=== PATIENT | male | born 1965 | race Caucasian/White ===

== ENCOUNTER 2020-03-16 09:01 | Day surgery (SDC) | payer OTHER ==
[~2020-03-16] VITALS: Ht 172.7 cm; Wt 107.3 kg
[~2020-03-16 09:01] MED LIST: PRILOSEC 20MG20 MG PO; ZOLOFT20 MG/ML
[2020-03-16] MEDS ORDERED: PROZAC 20MG20 MG PO (09:40)
[2020-03-16] MEDS ORDERED: VITAMIND3 5000 PO (09:41)
[2020-03-16] MEDS ORDERED: DIOVAN320 MG PO (09:42)
[2020-03-16] MEDS ORDERED: CRESTOR 10MG10 MG PO (09:43)
[2020-03-16] MEDS ORDERED: DEPAKOTE500 MG PO (09:43)
[2020-03-16] MEDS ORDERED: MINIPRESS2 MG PO (09:44)
[2020-03-16] MEDS ORDERED: LIPITOR20 MG PO (09:44)
[2020-03-16] MEDS ORDERED: GLUCOPHAGE1000 MG PO (09:45)
[2020-03-16] MEDS ORDERED: SINGULAIR 110 MG/TAB PO (09:45)
[2020-03-16 09:46] VITALS: BP 138/78; PULSE 63; TEMP 97
[2020-03-16 11:00] VITALS: BP 105/60; PULSE 61; TEMP 96.9
[2020-03-16 11:15] VITALS: BP 127/77; PULSE 61
--- NOTE | 2020-03-16 11:15 | NUR ---
PT RETURNED FROM ENDO PROCEDURE ROOM INTO BAY#1. PT ALERT, ORIENTATED, SLEEPY. LUNGS CLEAR, HRR AND BRADYCARDIC. BOWEL SOUNDS ACTIVE. PT REQUESTS DOMINIC CRACKERS AND DIET SPRITE. WILL CONT TO SANCHEZ.
--- NOTE | 2020-03-16 11:21 | NUR ---
PT TOLERATING SPRITE AND CRACKERS. PT DENIES PAIN OR NAUSEA AT THIS TIME. WILL CONT TO MONITOR.
[2020-03-16 11:30] VITALS: BP 116/71; PULSE 56
--- NOTE | 2020-03-16 12:00 | NUR ---
PT ALERT AND ORIENTATED, DENIES PAIN OR NAUSEA AT THIS TIME. IV DC'D, PT TOLERATED WELL, VSS, AFEBRILE. DISMISSAL INSTRUCTIONS GIVEN, QUESTIONS ANSWERED REGARDING H-PYLORI TEST. DENIED FURTHER QUESTIONS.
--- NOTE | 2020-03-16 12:04 | NUR ---
PT DISCHARGED PER WC TO FAMILY VEHICLE. DRIVING.
== END 2020-03-16 11:50 | disposition home or self-care (01) ==
LOC: SDCO 09:01
DX: K57.30 Diverticulosis of large intestine without perforation or abscess without bleeding (principal); K92.1 Melena; K64.1 Second degree hemorrhoids; R19.7 Diarrhea, unspecified; K21.9 Gastro-esophageal reflux disease without esophagitis; E78.5 Hyperlipidemia, unspecified; F43.10 Post-traumatic stress disorder, unspecified; F41.9 Anxiety disorder, unspecified; M19.90 Unspecified osteoarthritis, unspecified site; E11.9 Type 2 diabetes mellitus without complications; F17.210 Nicotine dependence, cigarettes, uncomplicated; G47.33 Obstructive sleep apnea (adult) (pediatric); I10 Essential (primary) hypertension; G43.909 Migraine, unspecified, not intractable, without status migrainosus; F32.9 Major depressive disorder, single episode, unspecified; Z79.84 Long term (current) use of oral hypoglycemic drugs
CPT/HCPCS: J2704; J7120

== ENCOUNTER 2020-06-09 21:22 | Emergency (ER) | payer OTHER ==
[~2020-06-09] VITALS: Ht 172.7 cm; Wt 100.0 kg
[~2020-06-09 21:22] MED LIST changes: +CRESTOR 10MG10 MG PO; +DEPAKOTE500 MG PO; +DIOVAN320 MG PO; +GLUCOPHAGE1000 MG PO; +LIPITOR20 MG PO; +MINIPRESS2 MG PO; +PROZAC 20MG20 MG PO; +SINGULAIR 110 MG/TAB PO; +VITAMIND3 5000 PO
[2020-06-09 21:40] VITALS: TEMP 98
[2020-06-09 22:09] LABS: BASO # 0.1 (0.0-0.2); BASO % 0.8 % (0.0-2.0); EOS # 0.2 (0.0-0.7); EOS % 1.9 % (0-4.0); GRAN % 76.9 % (42.2-75.2); HEMATOCRIT 39.5 % (42.0-52.0); HEMOGLOBIN 13.1 g/dl (13.5-18.0); LYMPH # 1.5 (1.2-3.4); LYMPH % 14.6 % (20.0-51.0); MEAN CELL VOLUME 85 fl (80.0-100.0); MEAN CORPUSCULAR HEMOGLOBIN 28 pg (27.0-31.0); MEAN CORPUSCULAR HGB CONC 33 g/dl (33.0-37.0); MONO # 0.6 (0.1-0.6); MONO % 5.4 % (1.7-9.3); PLATELET COUNT 304 K/mm3 (130-400); RED BLOOD COUNT 4.63 M/mm3 (4.20-5.60); REDCELL DISTRIBUTION WIDTH-CV 13.1 % (11.5-14.5)
[2020-06-09 22:22] LABS: CALCIUM 8.9 mg/dL (8.4-10.2); CREATININE, serum 1.05 (0.66-1.25)
[2020-06-09 22:29] LABS: ERYTHROCYTE SEDIMENTATION RATE 4 mm/hr (0-30)
[2020-06-09] MEDS ORDERED: DOXYCYCLINE 10100 MG PO (23:17)
[2020-06-09] MEDS ORDERED: NORCO 325 MG-51 TAB PO (23:17)
[2020-06-09 23:24] VITALS: BP 117/74; PULSE 68
== END 2020-06-09 23:30 | disposition home or self-care (01) ==
LOC: COL.ER 21:22
PROVIDERS: Emergency Medicine
DX: M25.532 Pain in left wrist (principal); E11.9 Type 2 diabetes mellitus without complications; I10 Essential (primary) hypertension; E78.5 Hyperlipidemia, unspecified; Z79.84 Long term (current) use of oral hypoglycemic drugs; Z79.899 Other long term (current) drug therapy; X58.XXXA Exposure to other specified factors, initial encounter
CPT/HCPCS: J1885; J3010

== ENCOUNTER 2022-03-26 12:26 | Emergency (ER) | payer OTHER ==
[~2022-03-26] VITALS: Ht 172.7 cm; Wt 102.3 kg
[~2022-03-26 12:26] MED LIST changes: +DOXYCYCLINE 10100 MG PO; +NORCO 325 MG-51 TAB PO
[2022-03-26 15:10] LABS: BASO # 0.1 K/mm3 (0.0-0.2); BASO % 0.7 % (0.0-2.0); EOS # 0.2 K/mm3 (0.0-0.7); EOS % 2.7 % (0.0-4.0); GRAN # 6.2 K/mm3 (1.4-6.5); GRAN % 68.3 % (42.2-75.2); HEMATOCRIT 40.2 % (42.0-52.0); HEMOGLOBIN 13.7 g/dl (13.5-18.0); LYMPH # 1.8 K/mm3 (1.2-3.4); LYMPH % 19.6 % (20.0-51.0); MEAN CELL VOLUME 88 fl (80.0-100.0); MEAN CORPUSCULAR HEMOGLOBIN 30 pg (27-31); MEAN CORPUSCULAR HGB CONC 34 g/dl (33.0-37.0); MEAN PLATELET VOLUME 9.2 fl (7.4-10.4); MONO # 0.7 K/mm3 (0.1-0.6); MONO % 8.1 % (1.7-9.3); PLATELET COUNT 343 K/mm3 (130-400); RED BLOOD COUNT 4.57 M/mm3 (4.20-5.60); REDCELL DISTRIBUTION WIDTH-CV 13.2 % (11.5-14.5)
[2022-03-26 15:32] LABS: ALBUMIN 3.7 gm/dL (3.5-5.0); BILIRUBIN,TOTAL 0.7 mg/dL (0.2-1.2); CALCIUM 9.8 mg/dL (8.4-10.2); CREATININE, serum 0.94 mg/dL (0.72-1.25); POTASSIUM 3.8 mmol/L (3.5-4.5); TOTAL PROTEIN 7.4 gm/dL (6.2-8.1)
[2022-03-26 16:26] LABS: COLLECTION METHOD CLEAN CATCH
[2022-03-26 16:43] LABS: URINE APPEARANCE Cloudy (CLEAR/HAZY); URINE COLOR Amber (YELLOW)
[2022-03-26 16:44] LABS: URINE GLUCOSE 2+ (NEGATIVE); URINE KETONE Negative (NEGATIVE); URINE PROTEIN(semi-quant) TRACE (NEGATIVE); URINE UROBILINOGEN 0.2 E.U/dL (0.2-1.0)
[2022-03-26 16:45] LABS: URINE BLOOD Negative (NEGATIVE); URINE NITRATE Negative (NEGATIVE)
[2022-03-26 16:48] LABS: MUCOUS Present (NOT PRESENT); SQUAMOUS EPITHELIAL None Seen /hpf (0-10); URINE BACTERIA None Seen /hpf (NONE SEEN); URINE CALCIUM OXALATE CRYSTAL Present (NOT PRESENT); URINE RBC 0-2 /hpf (0-2)
[2022-03-26 19:10] VITALS: BP 158/100; PULSE 94; TEMP 96.8
== END 2022-03-26 19:10 | disposition home or self-care (01) ==
LOC: COL.ER 12:26
PROVIDERS: Nurse Practitioner Primary Care
DX: K59.00 Constipation, unspecified (principal); F17.200 Nicotine dependence, unspecified, uncomplicated; Z96.652 Presence of left artificial knee joint; Z79.1 Long term (current) use of non-steroidal anti-inflammatories (NSAID)
CPT/HCPCS: J7120; Q9967